=== PATIENT | male | born 1970 | race Caucasian/White ===

== ENCOUNTER 2020-09-21 08:55 | Outpatient (REF) | payer OTHER, SELFPAY ==
--- NOTE | ~2020-09-21 | XR_ITS ---
EXAMINATION: XR CHEST CLINICAL INFORMATION: Chest pain. COMPARISON: Abnormal CT chest without contrast 02/11/2020 TECHNIQUE: 2 views of the chest were obtained. FINDINGS: The lungs are well-expanded and clear of acute process. The heart size and pulmonary vascularity is normal. There is mild spondylosis dorsal spine. No lytic process. XR/XR chest 2V IMPRESSION: Unremarkable chest exam.
[2020-09-21 09:41] LABS: MANUAL DIFF FLAG NO
[2020-09-21 09:44] LABS: Basophils Absolute Auto 0.1 X10*3/uL (0.0-0.2); Basophils Percent Auto 0.9 % (0-2); Eosinophils Absolute Auto 0.3 X10*3/uL (0.0-0.4); Eosinophils Percent Auto 3.8 % (0-4); Hematocrit 46.7 % (42-52); Hemoglobin 14.9 g/dl (14.0-18.0); Imm Gran Abs Auto 0.04 X10*3/uL (0.00-0.03); Imm Gran Pct Auto 0.5 % (0.0-0.4); Lymphocytes Absolute Auto 1.7 X10*3/uL (1.2-4.9); Lymphocytes Percent Auto 22.7 % (20-40); Mean Corpuscular HGB Conc 31.9 g/dl (31.0-36.0); Mean Corpuscular Volume 87.6 fL (80-98); Mean Platelet Volume 9.8 fL (9.4-12.4); Monocytes Absolute Auto 0.7 X10*3/uL (0.1-1.2); Monocytes Percent Auto 9.1 % (2-11); Neutrophils Absolute Auto 4.8 X10*3/uL (2.0-8.3); Platelet Count 242 X10*3/uL (160-400); Red Blood Count 5.33 X10*6/uL (4.60-5.80); White Blood Count 7.6 X10*3/uL (4.8-10.8)
[2020-09-21 10:11] LABS: Alanine Aminotransferase 21 U/L (0-40); Albumin Level 4.5 g/dL (3.5-5.0); Alkaline Phosphatase 101 U/L (39-117); Anion Gap 14 (12-20); Aspartate Amino Transferase 23 U/L (5-37); Bilirubin Total 0.4 mg/dL (0.0-1.0); Blood Urea Nitrogen 17 mg/dL (9-16); Calcium 9.1 mg/dL (8.4-10.2); Carbon Dioxide 27 mmol/L (22-29); Chloride 102 mmol/L (96-108); Cholesterol 279 mg/dL; Estimated Glomerular Filt Rate > 60; Glucose Fasting 94 mg/dL (60-99); HDL Cholesterol 55 mg/dL; LDL Cholesterol Calculated 200 mg/dl; Potassium 4.7 mmol/L (3.3-5.1); Sodium 138 mmol/L (135-145); Triglycerides 122 mg/dL
[2020-09-21 10:31] LABS: ~HepC Num1 14.22 S/CO (0.00-0.79); ~Hepatitis C Antibody Reactive (Nonreactive)
[2020-09-21 10:32] LABS: Thyroid Stimulating Hormone 1.15 uIU/mL (0.32-4.0)
== END 2020-09-21 08:56 | disposition home or self-care (01) ==
LOC: HO.XRAY 08:55
PROVIDERS: Visit Provider Internal Medicine
DX: Z00.00 Encounter for general adult medical examination without abnormal findings (principal); B19.20 Unspecified viral hepatitis C without hepatic coma; E03.9 Hypothyroidism, unspecified; E11.9 Type 2 diabetes mellitus without complications; Z20.2 Contact with and (suspected) exposure to infections with a predominantly sexual mode of transmission; R91.8 Other nonspecific abnormal finding of lung field
CPT/HCPCS: 36415; 71046; 80053; 80061; 84443; 85025; 86803; 87522

== ENCOUNTER → 2020-10-14 11:27 | Outpatient (BNVA) | payer OTHER, SELFPAY | PROVIDERS: PCP Internal Medicine; Visit Provider Physician Assistant ==

== ENCOUNTER 2020-11-19 08:21 | Outpatient (REF) | payer OTHER, SELFPAY ==
[2020-11-19 10:30] LABS: HBS Num1 315.04 mIU/mL (0-7.99); HBsAGNum1 0.35 S/CO (0.00-0.99); Hepatitis B Surface Antigen Negative (Negative); ~Hepatitis B Surface Antibody REACTIVE (Nonreactive)
[2020-11-19 10:36] LABS: Hepatitis B Core Antibody Nonreactive (Nonreactive)
[2020-11-21 18:36] LABS: HCV RNA PCR Qn 28500 IU/mL (NOT DETECTED); HCV RNA PCR Qn 4.45 Log IU/mL (NOT DETECTED)
[2020-11-25 16:01] LABS: HCV Genotype LiPA 1a
== END 2020-11-19 08:22 | disposition home or self-care (01) ==
LOC: HO.LAB 08:21
PROVIDERS: PCP Internal Medicine; Visit Provider Physician Assistant
DX: B19.20 Unspecified viral hepatitis C without hepatic coma (principal); R74.01 Elevation of levels of liver transaminase levels
CPT/HCPCS: 36415; 86704; 86706; 87340; 87522; 87902; 99202

== ENCOUNTER 2020-12-04 07:48 | Outpatient (REF) | payer OTHER, SELFPAY ==
--- NOTE | ~2020-12-04 | US_ITS ---
EXAMINATION: US COMPLETE ABDOMEN WITH LIVER ELASTOGRAPHY CLINICAL INFORMATION: Viral hepatitis seen without hepatic coma. COMPARISON: None TECHNIQUE: Real-time imaging of the abdominal viscera. Noninvasive ultrasound liver fibrosis assessment is performed using Zeke ElastPQ point quantification shear wave elastography (pSWE) with a C5-2 MHz transducer. Multiple elastography samples are obtained. FINDINGS: PANCREAS: Normal. The visualized pancreatic head and body are normal in appearance. The remainder of the pancreas is obscured from visualization by the overlying bowel gas. ABDOMINAL AORTA: The proximal, middle, and distal aortic segments are normal in caliber. INFERIOR VENA CAVA: Visualized portions are normal. LIVER: Normal. The liver demonstrates normal size, contour and echogenicity. No focal lesion or intrahepatic biliary duct dilatation. The right lobe measures 16.1 cm in length. The left lobe measures 11.5 cm in length. Portal flow is hepatopedal. Shear wave liver elastography median stiffness is 1.37 m/s (reference: normal median stiffness is 1.3 m/s or less). IQR/median stiffness to assess sampling precision is 0.18 (reference: good quality data set is IQR/median stiffness of 0.15 or less). GALLBLADDER: There are multiple echogenic gallstones without wall thickening. There is no pericholecystic fluid collection or right apical and tenderness. COMMON BILE DUCT: Normal in caliber measuring 0.3 cm in diameter. RIGHT KIDNEY: Normal. No hydronephrosis. No renal calculi or focal parenchymal lesions. The kidney measures 10.9 cm in maximum dimension. LEFT KIDNEY: There are multiple anechoic cysts. The largest cyst measures 1.4 x 1.1 x 1.3 cm. There is normal cortical thickness. No echogenic stones or hydronephrosis seen. The kidney measures 11.5 cm in maximum dimension. SPLEEN: Normal. The spleen measures 12.9 cm in maximum dimension. FREE FLUID: None. US/US abdomen comp w elastography IMPRESSION: 1. Hepatic steatosis without focal lesion. Normal hepatopedal flow seen in the portal vein. 2. Cholelithiasis without wall thickening. 3. Multiple left renal cysts. 3. Liver Elastography: Median stiffness of 1.37m/s. cACLD (ruled out). REFERENCE: Society of Radiologists in Ultrasound Liver Stiffness Thresholds (2019): LIVER STIFFNESS THRESHOLDS: *Liver Stiffness equal or less than 1.3 m/s: High probability of being normal. *Liver Stiffness less than 1.7 m/s: In the absence of other known clinical signs, rules out compensated advanced chronic liver disease. *Liver Stiffness 1.7-2.1 m/s: Suggestive of compensated advanced chronic liver disease but need further test for confirmation. *Liver Stiffness over 2.1 m/s: Rules in compensated advanced chronic liver disease. *Liver Stiffness over 2.4 m/s: Suggestive of clinically significant portal hypertension. QUALITY OF DATA SET: *IQR/Median value equal or less than 0.15 implies a quality data set. *IQR/Median value over 0.15 implies a poor quality data set. SIGNIFICANT CHANGE FROM PRIOR EXAM: Significant change if liver stiffness measurement is 10% or greater from prior exam. OTHER CONSIDERATIONS: The stage of liver fibrosis may be overestimated in the setting of acute hepatitis, liver inflammation, elevated liver function tests, hepatic vascular congestion, obstructive cholestasis, non-fasting state, and infiltrative diseases such as amyloidosis and lymphoma. In some patients with NAFLD, the liver stiffness thresholds for compensated advanced chronic liver disease may be lower. In causes other than viral hepatitis and NAFLD, liver stiffness thresholds are not well established.
== END 2020-12-04 07:49 | disposition home or self-care (01) ==
LOC: HO.US 07:48
PROVIDERS: PCP Internal Medicine; Visit Provider Physician Assistant
DX: B19.20 Unspecified viral hepatitis C without hepatic coma (principal)
CPT/HCPCS: 76705; 76981

== ENCOUNTER 2020-12-07 07:08 | Outpatient (REF) | payer OTHER, SELFPAY ==
--- NOTE | ~2020-12-07 | MR_ITS ---
EXAMINATION: MRI BRAIN WITHOUT CONTRAST CLINICAL INFORMATION: 50-year-old with history of right occipital lobe infarct. Hemianopsia. COMPARISON: 03/28/2017 MRI. TECHNIQUE: Multiplanar multisequence MR imaging of the brain was done without IV contrast. FINDINGS: Brain Volume: Normal for age. Structural: No malformations. Brain and Meninges: Redemonstrated is a remote right mesial occipital lobe infarct with focal volume loss and parenchymal gliosis, similar to previous study. Just posterior to this, there is another smaller remote infarct in the same territory which is not visualized on the previous exam with associated parenchymal gliosis. There is a 4 mm subcortical white matter T2 hyperintensity in the right posterior frontal lobe which is stable from previous MRI. There is a 2 mm T2 hyperintensities subcortical white matter left frontal lobe near the convexity, unchanged. A few punctate subcortical white matter T2 hyperintensities are seen in the left cerebral hemisphere at the level of the antoine radiata, probably unchanged. There is a tiny remote infarct in the left cerebellar hemisphere, stable in appearance. DWI imaging demonstrates no restricted diffusion. Specifically, there is no evidence for recent or acute infarct. No extra-axial fluid collections, space-occupying process or mass effect are identified. Gradient echo imaging demonstrates no evidence for hemorrhage, hemosiderin staining or abnormal mineral deposition. Ventricles and Subarachnoid Spaces: The ventricular system and subarachnoid spaces are stable in appearance without hydrocephalus. Orbital Structures: The visualized orbital structures appear grossly unremarkable within the limitations of the study. Vascular: Normal signal voids are noted in the visualized major intracranial vessels. Sinuses and Osseous Structures: Osseous marrow signal appears grossly within normal limits. There are mucosal inflammatory changes in the ethmoid complex, left more than right. MR/MR head/brain wo con IMPRESSION: 1. Remote cortical infarcts in the right mesial occipital lobe as described above and a tiny remote infarct in the left cerebellar hemisphere. 2. Scattered nonspecific subcortical white matter T2 hyperintensities bilaterally, largely stable in appearance. 3. No evidence for recent or acute infarct, hemorrhage, space-occupying process or mass effect.
== END 2020-12-07 07:09 | disposition home or self-care (01) ==
LOC: HO.MRI 07:08
PROVIDERS: Visit Provider Psychiatry & Neurology Neurology
DX: I63.50 Cerebral infarction due to unspecified occlusion or stenosis of unspecified cerebral artery (principal); H53.47 Heteronymous bilateral field defects
CPT/HCPCS: 70551

== ENCOUNTER 2021-01-06 12:09 | Day surgery (SDC) | payer OTHER, SELFPAY ==
[2021-01-01 10:08] VITALS: BMI 35.3
--- NOTE | 2021-01-05 10:53 | P.CONAN_ITS ---
Documented by User: Jacki Perez 01/05/21 10:59 HPI - Anesthesia Eval Consult details Narrative: 50yo M for Colonoscopy h/o substance abuse ?suboxone or methadone per pcp note PMFSH Active Problems Active Problems: All Active Problems (Updated 11/19/20 @ 11:24 by Kiesha Guallpa PA-C) CVA (cerebral vascular accident) (Acute) Hepatitis C (Acute) Encounter for screening colonoscopy (Acute) Depression (Acute) Physical exam (Acute) Past Medical History Medical History (Updated 01/05/21 @ 10:56 by Jacki Perez) CVA (cerebral vascular accident) Depression Hepatitis C Family History Family History Father CVD (cardiovascular disease) Emphysema lung Mother CVD (cardiovascular disease) CHF (congestive heart failure) Brother No problems noted. Brother No problems noted. Sister No problems noted. Son No problems noted. Daughter No problems noted. Daughter No problems noted. Surgical History Surgical History History of back surgery History of hand surgery Social History Social History Household Members: Friend(s) Household Members Other:: [place] Housing: Other Alcohol intake: never Patient Tobacco Use Status: Current everyday Tobacco user Cigarettes Per Day: 6 Use of substances other than those prescribed or required for medical reasons: No Have you been hit, kicked, punched, or otherwise hurt by someone within the past year? If so, by whom?: No Are you DNR?: No Advance Directives: No Advance Directives Information Provided: Yes Current occupational status: unemployed Meds Allergies Allergy/AdvReac Type Severity Reaction Status Date / Time No Known Allergies Allergy Verified 10/15/20 11:46 Home Medications Medication Instructions Recorded Confirmed Last Taken Type doxepin 100 mg capsule 100 mg PO BEDTIME 09/17/20 09/17/20 Unknown History doxepin 50 mg capsule mg PO 10/15/20 Unknown History Exam Exam Date and Time: January 05, 2021 1053 Height,Weight and Vital Signs: Height 5 ft 10 in Weight 111.584 kg Pertinent Lab Results Pertinent Lab Results: Laboratory Tests 11/19/20 11/19/20 09:18 09:18 Hep Bs Antigen Negative Hep Bs Antibody REACTIVE Hep B Core Total Ab Nonreactive HCV RNA Genotype LiPA 1a HCV RNA (PCR) IUs/ml 81526 H HCV RNA PCR log IUs/ml 4.45 H Assessment and Plan Assessment Anesthesia Assessment: Chart Reviewed Documented by User: Graciela Simmons 01/06/21 13:16 [facility] Past Medical History Medical History (Updated 01/05/21 @ 10:56 by Jacki Perez) CVA (cerebral vascular accident) Depression Hepatitis C Family History Family History Father CVD (cardiovascular disease) Emphysema lung Mother CVD (cardiovascular disease) CHF (congestive heart failure) Brother No problems noted. Brother No problems noted. Sister No problems noted. Son No problems noted. Daughter No problems noted. Daughter No problems noted. Surgical History Surgical History History of back surgery History of hand surgery Social History Social History Household Members: Friend(s) Household Members Other:: [place] Housing: Other Alcohol intake: never Patient Tobacco Use Status: Current everyday Tobacco user Cigarettes Per Day: 6 Use of substances other than those prescribed or required for medical reasons: No Have you been hit, kicked, punched, or otherwise hurt by someone within the past year? If so, by whom?: No Are you DNR?: No Advance Directives: No Advance Directives Information Provided: Yes Current occupational status: unemployed Meds Allergies Allergy/AdvReac Type Severity Reaction Status Date / Time No Known Allergies Allergy Verified 10/15/20 11:46 Home Medications Medication Instructions Recorded Confirmed Last Taken Type doxepin 100 mg capsule 100 mg PO BEDTIME 09/17/20 09/17/20 Unknown History doxepin 50 mg capsule mg PO 10/15/20 Unknown History Exam Airway Mallampati Class: III TM Dist: >3cm Neck ROM: Full Heart: RRR Lungs: CTA Assessment and Plan Assessment Anesthesia Assessment: Anesthesia Plan Discussed and Chart Reviewed Final Anesthetic Review NPO: Yes ASA Class: II Final Preanesthetic Review: No Changes in Pt Med Stat and Consent Obtained/Reviewed Patient Risk: Intermediate Procedure Risk: Intermediate Anesthetic Plan Anesthetic Plan: MAC: Disposition: Standard PACU
[2021-01-06 12:30] VITALS: BP 116/66; PULSE 78; RESP 18; TEMP 36.9; O2SAT 96
[2021-01-06] MEDS: Lactated Ringers 1,000 ML 100 ML IVCONT (12:50)
--- NOTE | 2021-01-06 13:11 | P.HPSUR_ITS ---
Pre-Procedural Eval Section B Chief Complaint: Screening Relevant Family History (Specify if Yes): No Relevant Social History: Tobacco Use Present Medications: see Short Stay Collaborative assessment Medical History: Significant History (CVA (cerebral vascular accident) Depression Hepatitis C) History of Previous Operations: Relevant previous surgery/procedure and date(s) (back surgery) Allergies: Allergies Allergy/AdvReac Type Severity Reaction Status Date / Time No Known Allergies Allergy Verified 10/15/20 11:46 Review of Systems Sugical H&P ROS: Negative: Constitution, Cardiovascular, Respiratory, Neurological, Psychiatric, Hem-Onc, Allergic/Immunologic, Gastrointestinal, G enitourinary, Musculoskeletal, Integumentary, Endocrine and Eyes/Ears/Nose/Throat Exam Surgical H&P Exam: Normal: HEENT, Normal: Heart, Normal: Lungs, Normal: Extremities, Normal: Abdomen, Normal: Skin and Normal: Neurological Plan Diagnosis/Plan: Unchanged I have reviewed the history and physical and performed a pertinent physical examination on my patient. No changes have occurred unless specified.
--- NOTE | 2021-01-06 13:54 | P.BOP_ITS ---
Brief Operative Note Date of Service: 01/06/21 Pre-op diagnosis: colon screening Post-op diagnosis: same Procedure: see op note Surgeon: Rogelio Adams MD Anesthesia: MAC Was an Health Science Instructor used for this Procedure?: No Estimated blood loss (mL): 0 Condition: stable Disposition: PACU
--- NOTE | 2021-01-06 13:55 | W.PM.OPN ---
Operative Note Operative Note Date of Service: 01/06/21 Narrative: Operative Information Procedure Description: Colonoscopy COLONOSCOPY Instrument: Olympus variable stiffness pediatric scope 190L Colonoscopy Monitoring: Vital signs and clinical assessment, continuous EKG monitoring, Pulse oximetry, Carbon Dioxide monitoring and blood pressure monitoring were done throughout the procedure. Colon withdrawal time was 14 minutes. Procedure: The patient was placed in the left lateral decubitis position and pre-procedure medications were administered. After a digital rectal examination of the ano-rectum, the video colonoscope was inserted into the rectum and advanced through the colon to the cecum/TI. The colonoscope was slowly withdrawn in a retrograde panoramic fashion and the colon mucosa was carefully examined including a retroflexed view of the rectum. Findings and interventions are described below. Procedure Difficulty:moderate Findings: Terminal Ileum-not seen Cecum:normal Ascending Colon: normal Transverse Colon -normal Descending Colon:normal Sigmoid Colon: normal Rectum: Retroflexion with small internal hemorrhoids, grade I Anorectum - normal Colon preparation: [place] Bowel Preparation Scale Right colon; 1 Transverse colon: 1 Left colon; 1 (0 = Unprepared colon segment with mucosa not seen due to solid stool that cannot be cleared. 1 = Portion of mucosa of the colon segment seen, but other areas of the colon segment not well seen due to staining, residual stool and/or opaque liquid. 2 = Minor amount of residual staining, small fragments of stool and/or opaque liquid, but mucosa of colon segment seen well. 3 = Entire mucosa of colon segment seen well with no residual staining, small fragments of stool or opaque liquid) Impression and Post Procedure Diagnosis: internal hemorrhoids poor prep Plan: High fiber diet leaflet Avoid straining at stool, epsom salts and sitz bath, anusol supps or cream prn Repeat Colonoscopy in 8-12 months, review prep instructions Above findings were reviewed with the patient and relevant handouts were provided if indicated.
[2021-01-06 14:00] VITALS: BP 110/70; PULSE 72; RESP 18; TEMP 36.6; O2SAT 95
[2021-01-06 14:15] VITALS: BP 122/70; PULSE 76; RESP 18; TEMP 37.1; O2SAT 97
== END 2021-01-06 15:00 | disposition home or self-care (01) ==
PROVIDERS: PCP Internal Medicine; Visit Provider Internal Medicine Gastroenterology
PROC: 0DJD8ZZ Inspection of Lower Intestinal Tract, Via Natural or Artificial Opening Endoscopic (ICD-10-PCS; CPT 45378; principal; 2021-01-06 13:20)
DX: Z12.11 Encounter for screening for malignant neoplasm of colon (principal); K64.0 First degree hemorrhoids; B19.20 Unspecified viral hepatitis C without hepatic coma; F32.9 Major depressive disorder, single episode, unspecified; Z86.73 Personal history of transient ischemic attack (TIA), and cerebral infarction without residual deficits; F17.210 Nicotine dependence, cigarettes, uncomplicated; Z79.899 Other long term (current) drug therapy
CPT/HCPCS: 45378